=== PATIENT | male | born 1975 | race Caucasian/White ===

== ENCOUNTER 2024-03-26 10:40 | Inpatient (IN) | payer OTHER ==
[~2024-03-26] VITALS: Ht 188 cm; Wt 160.9 kg
[2024-03-26] MEDS ORDERED: POTA-205 PO (13:16)
[2024-03-26] MEDS ORDERED: METF-436 PO (13:16)
[2024-03-26] MEDS ORDERED: CARV6.257 PO (13:16)
[2024-03-26] MEDS ORDERED: ASPI81TA52 PO (13:16)
[2024-03-26] MEDS ORDERED: ATOR-2 PO (13:18)
[2024-03-26] MEDS ORDERED: FURO-150 PO (13:18)
[2024-03-26 13:23] LABS: BASOPHILS # (AUTO) 0.1 X10'3 (0-0.2); BASOPHILS % (AUTO) 1.1 % (0-1); EOSINOPHILS # (AUTO) 0.2 X10'3 (0-0.9); EOSINOPHILS % (AUTO) 2.7 % (0-6); HEMATOCRIT 45.5 % (42.0-52.0); HEMOGLOBIN 15.7 g/dl (14.0-17.9); LYMPHOCYTES # (AUTO) 2.9 X10'3 (1.1-4.8); LYMPHOCYTES % (AUTO) 38.6 % (21-51); MEAN CORPUSCULAR HEMOGLOBIN 32.7 PG (27.0-31.0); MEAN CORPUSCULAR HGB CONC 34.6 g/dL (33.0-36.5); MEAN CORPUSCULAR VOLUME 94.4 FL (78-98); MEAN PLATELET VOLUME 8.3 FL (7.4-10.4); MONOCYTES # (AUTO) 0.7 X10'3 (0-0.9); MONOCYTES % (AUTO) 9.5 % (2-12); NEUTROPHILS # (AUTO) 3.7 X10'3 (1.8-7.7); NEUTROPHILS % (AUTO) 48.1 % (42-75); PLATELET COUNT 243 X10'3 (140-440); RED BLOOD COUNT 4.81 X10'6 (4.70-6.10); RED CELL DISTRIBUTION WIDTH 13.5 % (11.5-14.5); WHITE BLOOD COUNT 7.6 X10'3 (4.5-11.0)
[2024-03-26 13:37] LABS: ALANINE AMINOTRANSFERASE 51 U/L (12-78); ALBUMIN 3.9 G/DL (3.4-5.0); ALKALINE PHOSPHATASE 115 IU/L (46-116); ANION GAP 10 (8-16); ASPARTATE AMINO TRANSFERASE 21 U/L (10-37); BILIRUBIN,TOTAL 0.6 MG/DL (0.1-1.0); BLOOD UREA NITROGEN 14 MG/DL (7-18); BUN/CREATININE RATIO 14.1 (10.0-20.0); CALCIUM 8.8 MG/DL (8.5-10.1); CHLORIDE 104 MMOL/L (99-107); CREATININE 0.99 MG/DL (0.60-1.10); GLUCOSE 92 MG/DL (70-104); SODIUM 141 MMOL/L (135-145); TOTAL CARBON DIOXIDE 27.3 MMOL/L (24-32); TOTAL PROTEIN 7.7 G/DL (6.4-8.2); eCRCL 108 ML/MIN; eGFR 81 ML/MIN
[2024-03-26 13:48] LABS: MAGNESIUM 2.2 MG/DL (1.5-2.4); PRO BRAIN NATRIURETIC PEPTIDE 37 PG/ML (0-125)
[2024-03-26] MEDS ORDERED: potassium Cl 20 mEq SR tablet PO PRN ×2 (16:40)
[2024-03-26] MEDS ORDERED: magnesium hydroxide 30ml (MOM) UD suspension PO PRN (16:40)
[2024-03-26] MEDS ORDERED: mag hydrox/Alum hydrox/simeth 30ml oral suspension PO PRN (16:40)
[2024-03-26] MEDS ORDERED: potassium Cl 40MEQ/1/2NS 520ml 520 ML IV PRN (16:40)
[2024-03-26] MEDS ORDERED: magnesium sulf-water 2g/50mL 50 ML IV PRN (16:40)
[2024-03-26] MEDS ORDERED: HYDROcodone/acetaminophen 5mg/325mg tablet PO PRN (16:40)
[2024-03-26] MEDS ORDERED: ondansetron/PF 4mg/2ml inj IV PRN (16:40)
[2024-03-26] MEDS ORDERED: magnesium Cl slow-release 64mg tablet PO PRN (16:40)
[2024-03-26] MEDS ORDERED: HYDROcodone/acetaminophen 10/325mg tab PO PRN (16:40)
[2024-03-26] MEDS ORDERED: acetaminophen 325mg tablet PO PRN (16:40)
[2024-03-26] MEDS ORDERED: magnesium sulf-water 4G/100mL 100 ML IV PRN (16:40)
[2024-03-26] MEDS: normal saline 1000ml 1,000 ML IV SCH (17:03)
[2024-03-26] MEDS: K and/or MAG REPLACEMENT MC SCH (17:03)
[2024-03-26] MEDS ORDERED: DEXTROSE 15 GM of carb/4 tabs (each vial/BOTTLE has 4 tablets) PO PRN ×2 (19:00)
[2024-03-26] MEDS ORDERED: glucagon, human recombinant 1mg kit SUBCUT PRN (19:00)
[2024-03-26] MEDS ORDERED: dextrose 50%-water 50ml dispensing syringe IV PRN ×2 (19:00)
[2024-03-26] MEDS: docusate sod 100mg capsule PO SCH (20:00)
[2024-03-26] MEDS: heparin, porcine 5000 units/ml vial SQ SCH (20:00)
[2024-03-26] MEDS: INSULIN LISPRO 100 UNIT/ML INSULN.PEN MULTI-DOSE SQ SCH (20:49)
[2024-03-27] VITALS (14 sets, daily range): BP systolic 142–180; BP diastolic 76–117; PULSE 62–80; RESP 12–20; TEMP 97.8–98.5; O2SAT 95–99
[2024-03-27 02:46] LABS: BASOPHILS # (AUTO) 0.1 X10'3 (0-0.2); BASOPHILS % (AUTO) 1.2 % (0-1); EOSINOPHILS # (AUTO) 0.2 X10'3 (0-0.9); EOSINOPHILS % (AUTO) 3.1 % (0-6); HEMATOCRIT 43.1 % (42.0-52.0); HEMOGLOBIN 14.9 g/dl (14.0-17.9); LYMPHOCYTES # (AUTO) 2.8 X10'3 (1.1-4.8); LYMPHOCYTES % (AUTO) 43.1 % (21-51); MEAN CORPUSCULAR HEMOGLOBIN 32.4 PG (27.0-31.0); MEAN CORPUSCULAR HGB CONC 34.6 g/dL (33.0-36.5); MEAN CORPUSCULAR VOLUME 93.6 FL (78-98); MEAN PLATELET VOLUME 8.2 FL (7.4-10.4); MONOCYTES # (AUTO) 0.5 X10'3 (0-0.9); MONOCYTES % (AUTO) 8.4 % (2-12); NEUTROPHILS # (AUTO) 2.8 X10'3 (1.8-7.7); NEUTROPHILS % (AUTO) 44.2 % (42-75); PLATELET COUNT 198 X10'3 (140-440); RED BLOOD COUNT 4.61 X10'6 (4.70-6.10); RED CELL DISTRIBUTION WIDTH 13.4 % (11.5-14.5); WHITE BLOOD COUNT 6.4 X10'3 (4.5-11.0)
[2024-03-27 03:03] LABS: ALBUMIN 3.6 G/DL (3.4-5.0); ANION GAP 5 (8-16); BLOOD UREA NITROGEN 16 MG/DL (7-18); BUN/CREATININE RATIO 14.5 (10.0-20.0); CALCIUM 8.4 MG/DL (8.5-10.1); CHLORIDE 105 MMOL/L (99-107); CHOL/HDL RATIO 4.1 (0.00-4.99); CHOLESTEROL 162 MG/DL (0-200); GLUCOSE 101 MG/DL (70-104); HDL CHOLESTEROL 40 MG/DL (35-60); LDL CHOLESTEROL 93 MG/DL (50-100); POTASSIUM 4.1 MMOL/L (3.5-5.1); SODIUM 142 MMOL/L (135-145); TOTAL CARBON DIOXIDE 31.6 MMOL/L (24-32); TRIGLYCERIDES 191 MG/DL (20-135); eCRCL 98 ML/MIN; eGFR 72 ML/MIN
[2024-03-27] MEDS ORDERED: carvedilol 6.25mg tablet PO SCH (08:00)
[2024-03-27] MEDS: aspirin 81mg, enteric-coated 1 TAB TABLET.DR PO SCH (09:40)
[2024-03-27] MEDS: atorvastatin 20mg tablet PO SCH (09:42)
[2024-03-27] MEDS ORDERED: LIDOcaine 1% (10mg/ml) 2ml vial ONE (13:24)
[2024-03-27] MEDS ORDERED: verapamil 2.5 mg/ml inj IV ONE (13:24)
[2024-03-27] MEDS ORDERED: iohexol 350 MG/ML 50ML vial IV ONE (13:25)
[2024-03-27] MEDS ORDERED: fentaNYL/PF 50MCG/1 ML 2ML syringe ONE (13:25)
[2024-03-27] MEDS ORDERED: iohexol 350MG/ML 100ml bottle IV ONE ×2 (13:25→15:24)
[2024-03-27] MEDS ORDERED: nitroGLYCERIN 500mcg/5mL D5W 5 ML IV ONE (13:25)
[2024-03-27] MEDS ORDERED: midazolam 1 mg/ML 2ml injection ONE (13:25)
[2024-03-27] MEDS ORDERED: heparin 1,000unit/ml 10ml vial 10 ML ONE (13:25)
[2024-03-27] MEDS ORDERED: heparin 25,000 UNIT/250ml bag 250 ML IV ONE (15:14)
[2024-03-27 15:17] LABS: ISTAT HGB ART 15.3 g/dl (14.0-17.9); ISTAT Hct ART 45 %PCV (42-52); ISTAT O2 SATURATION ARTERIAL 89 % (95-98); ISTAT SOURCE ART
[2024-03-27] MEDS: carVEDilol 3.125mg tablet PO SCH (17:06)
[2024-03-27] MEDS: normal saline 1000ml 1,000 ML IV SCH (17:06)
[2024-03-27] MEDS: hydrALAZINE 20mg/ml inj. IV PRN (18:17)
[2024-03-28 02:00] VITALS: BP 127/67; PULSE 62; RESP 16; TEMP 97.9; O2SAT 100
[2024-03-28 06:00] VITALS: BP 118/73; PULSE 64; RESP 14; TEMP 97.8; O2SAT 96
[2024-03-28 08:00] VITALS: RESP 14; O2SAT 96
[2024-03-28 08:05] LABS: BASOPHILS % (AUTO) 0.6 % (0-1); EOSINOPHILS # (AUTO) 0.1 X10'3 (0-0.9); EOSINOPHILS % (AUTO) 2.1 % (0-6); HEMATOCRIT 42.5 % (42.0-52.0); HEMOGLOBIN 14.8 g/dl (14.0-17.9); LYMPHOCYTES # (AUTO) 1.6 X10'3 (1.1-4.8); LYMPHOCYTES % (AUTO) 24.8 % (21-51); MEAN CORPUSCULAR HEMOGLOBIN 32.6 PG (27.0-31.0); MEAN CORPUSCULAR HGB CONC 34.8 g/dL (33.0-36.5); MEAN CORPUSCULAR VOLUME 93.9 FL (78-98); MEAN PLATELET VOLUME 8.2 FL (7.4-10.4); MONOCYTES # (AUTO) 0.5 X10'3 (0-0.9); MONOCYTES % (AUTO) 7.1 % (2-12); NEUTROPHILS # (AUTO) 4.3 X10'3 (1.8-7.7); NEUTROPHILS % (AUTO) 65.4 % (42-75); PLATELET COUNT 207 X10'3 (140-440); RED BLOOD COUNT 4.52 X10'6 (4.70-6.10); RED CELL DISTRIBUTION WIDTH 13.2 % (11.5-14.5); WHITE BLOOD COUNT 6.6 X10'3 (4.5-11.0)
[2024-03-28 08:38] LABS: ANION GAP 9 (8-16); BLOOD UREA NITROGEN 13 MG/DL (7-18); BUN/CREATININE RATIO 13.5 (10.0-20.0); CALCIUM 8.3 MG/DL (8.5-10.1); CHLORIDE 106 MMOL/L (99-107); CREATININE 0.96 MG/DL (0.60-1.10); GLUCOSE 100 MG/DL (70-104); MAGNESIUM 2.1 MG/DL (1.5-2.4); PHOSPHORUS 2.8 MG/DL (2.3-4.5); SODIUM 142 MMOL/L (135-145); TOTAL CARBON DIOXIDE 27.2 MMOL/L (24-32); eCRCL 112 ML/MIN; eGFR 84 ML/MIN
[2024-03-28] MEDS: aspirin 81mg, enteric-coated 1 TAB TABLET.DR PO SCH (08:39)
[2024-03-28 08:50] LABS: ALBUMIN 3.6 G/DL (3.4-5.0)
[2024-03-28 11:00] VITALS: BP 123/63; PULSE 76; RESP 12; TEMP 97.9; O2SAT 96
[2024-03-28] MEDS ORDERED: LOSA50TA64 PO (12:56)
[2024-03-30 11:11] LABS: ISTAT HGB MIX 14.6 g/dl (14.0-17.9); ISTAT Hct MIX 43 %PCV (42-52); ISTAT O2 SATURATION MIX VENOUS 64 % (60-80); ISTAT SOURCE VEN
== END 2024-03-28 14:45 | disposition home or self-care (01) | DRG 251 ==
LOC: ER 10:41 → ED HOLD 16:40 → PCU 3S 03-27 16:30
PROVIDERS: ADMIT Family Medicine; ATTEND Family Medicine
PROC: 02703ZZ Dilation of Coronary Artery, One Artery, Percutaneous Approach (ICD-10-PCS; principal; 2024-03-27)
PROC: 4A023N8 Measurement of Cardiac Sampling and Pressure, Bilateral, Percutaneous Approach (ICD-10-PCS; 2024-03-27)
PROC: B2111ZZ Fluoroscopy of Multiple Coronary Arteries using Low Osmolar Contrast (ICD-10-PCS; 2024-03-27)
PROC: B2151ZZ Fluoroscopy of Left Heart using Low Osmolar Contrast (ICD-10-PCS; 2024-03-27)
DX: I25.10 Atherosclerotic heart disease of native coronary artery without angina pectoris (principal); I10 Essential (primary) hypertension; E11.9 Type 2 diabetes mellitus without complications; G47.33 Obstructive sleep apnea (adult) (pediatric); I25.2 Old myocardial infarction; Z88.0 Allergy status to penicillin; Z79.82 Long term (current) use of aspirin; Z79.84 Long term (current) use of oral hypoglycemic drugs; Z79.899 Other long term (current) drug therapy
CPT/HCPCS: 93306; 93460; 99285; C9607; 36415; 71045; 76937; 80048; 80053; 80061; 82803; 82948; 83036; 83735; 83880; 84100; 84484; 85014; 85025; 93005; 99152; 99153; A4615; A6258; C1725; C1751; C1769; C1894; G0378; J0360; J1644; J1815; J2003; J2250; J3010; J3490; J7030; Q9967

== ENCOUNTER 2024-06-14 16:01 | Emergency (ER) | payer BC, OTHER ==
[~2024-06-14] VITALS: Ht 188 cm; Wt 152.3 kg
[~2024-06-14 16:01] MED LIST: ASPI81TA52 PO; ATOR-2 PO; CARV6.257 PO; FURO-150 PO; LOSA50TA64 PO; METF-436 PO; POTA-205 PO
[2024-06-14 16:50] VITALS: BP 147/90; PULSE 80; TEMP 97.4; O2SAT 97
[2024-06-14 18:59] VITALS: RESP 16
[2024-06-14] MEDS: ketorolac trometh 15mg/ml vial 15 MG/ML ML IM ONE (18:59)
== END 2024-06-14 20:31 | disposition home or self-care (01) ==
LOC: ER 16:02
DX: M25.521 Pain in right elbow (principal); I25.10 Atherosclerotic heart disease of native coronary artery without angina pectoris; Z88.0 Allergy status to penicillin; Z79.899 Other long term (current) drug therapy
CPT/HCPCS: 96372; 99283; J1885

== ENCOUNTER 2024-06-24 11:49 | Emergency (ER) | payer BC ==
[~2024-06-24] VITALS: Ht 188 cm; Wt 153.1 kg
[2024-06-24 12:45] LABS: BASOPHILS # (AUTO) 0.1 X10'3 (0-0.2); BASOPHILS % (AUTO) 1.2 % (0-1); EOSINOPHILS # (AUTO) 0.2 X10'3 (0-0.9); EOSINOPHILS % (AUTO) 2.1 % (0-6); HEMATOCRIT 46.9 % (42.0-52.0); LYMPHOCYTES # (AUTO) 2.6 X10'3 (1.1-4.8); LYMPHOCYTES % (AUTO) 35.4 % (21-51); MEAN CORPUSCULAR HEMOGLOBIN 31.9 PG (27.0-31.0); MEAN CORPUSCULAR HGB CONC 34.1 g/dL (33.0-36.5); MEAN CORPUSCULAR VOLUME 93.5 FL (78-98); MEAN PLATELET VOLUME 8.3 FL (7.4-10.4); MONOCYTES # (AUTO) 0.6 X10'3 (0-0.9); MONOCYTES % (AUTO) 7.9 % (2-12); NEUTROPHILS % (AUTO) 53.4 % (42-75); PLATELET COUNT 263 X10'3 (140-440); RED BLOOD COUNT 5.02 X10'6 (4.70-6.10); RED CELL DISTRIBUTION WIDTH 13.1 % (11.5-14.5); WHITE BLOOD COUNT 7.4 X10'3 (4.5-11.0)
[2024-06-24 12:58] LABS: ALANINE AMINOTRANSFERASE 62 U/L (12-78); ALBUMIN 4.1 G/DL (3.4-5.0); ALBUMIN/GLOBULIN RATIO 1.2 (1.1-1.5); ALKALINE PHOSPHATASE 106 IU/L (46-116); ANION GAP 5 (8-16); ASPARTATE AMINO TRANSFERASE 20 U/L (10-37); BILIRUBIN,TOTAL 0.4 MG/DL (0.1-1.0); BLOOD UREA NITROGEN 14 MG/DL (7-18); BUN/CREATININE RATIO 16.5 (10.0-20.0); CALCIUM 8.7 MG/DL (8.5-10.1); CHLORIDE 105 MMOL/L (99-107); CREATININE 0.85 MG/DL (0.60-1.10); GLUCOSE 87 MG/DL (70-104); POTASSIUM 4.2 MMOL/L (3.5-5.1); SODIUM 139 MMOL/L (135-145); TOTAL CARBON DIOXIDE 28.6 MMOL/L (24-32); TOTAL PROTEIN 7.6 G/DL (6.4-8.2); eCRCL 126 ML/MIN; eGFR > 90 ML/MIN
[2024-06-24 13:07] LABS: PRO BRAIN NATRIURETIC PEPTIDE < 30 PG/ML (0-125)
[2024-06-24 16:20] VITALS: BP 130/81; PULSE 98; RESP 16; TEMP 98; O2SAT 97
== END 2024-06-24 16:22 | disposition home or self-care (01) ==
LOC: ER 11:49
DX: M25.521 Pain in right elbow (principal); E11.9 Type 2 diabetes mellitus without complications; I10 Essential (primary) hypertension; I25.10 Atherosclerotic heart disease of native coronary artery without angina pectoris; Z87.891 Personal history of nicotine dependence; Z88.0 Allergy status to penicillin; Z79.82 Long term (current) use of aspirin; Z95.5 Presence of coronary angioplasty implant and graft
CPT/HCPCS: 36415; 71045; 73080; 80053; 83880; 84484; 85025; 93005; 99285